=== PATIENT | female | born 1990 | race Native Hawaiian/Other Pacific Islander ===

== ENCOUNTER 2017-11-26 01:07 | Emergency (ER) | payer OTHER ==
[2017-11-26 01:09] VITALS: BMI 18.8
[2017-11-26 01:18] VITALS: BP 117/72; PULSE 94; RESP 16; TEMP 98; O2SAT 98
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
== END 2017-11-26 04:10 | disposition home or self-care (01) ==
LOC: H.ER 01:07
DX: S09.90XA Unspecified injury of head, initial encounter (principal); M54.2 Cervicalgia; M54.9 Dorsalgia, unspecified; V43.62XA Car passenger injured in collision with other type car in traffic accident, initial encounter; S19.9XXA Unspecified injury of neck, initial encounter
CPT/HCPCS: 70450; 72125; 72128; 81025; 96372; 99285; J1885